=== PATIENT | male | born 1980 | race Caucasian/White ===

== ENCOUNTER 2023-04-06 14:09 | Outpatient (RCR) | payer OTHER, SELFPAY ==
[2023-04-06 15:17] VITALS: BMI 30.5
[2023-04-06 15:18] VITALS: BMI 30.5
== END 2023-06-28 09:51 | disposition home or self-care (01) ==
LOC: ANHDMC 14:09
PROVIDERS: PCP Family Medicine; Visit Provider Nurse Practitioner Gerontology
DX: E11.9 Type 2 diabetes mellitus without complications (principal); Z71.3 Dietary counseling and surveillance
CPT/HCPCS: 97802

== ENCOUNTER 2023-08-02 06:58 | Outpatient (CLI) | payer OTHER, SELFPAY ==
[2023-08-02 07:52] LABS: Alanine Aminotransferase 18 U/L (6-50); Albumin Level 4.1 g/dL (3.5-5.1); Alkaline Phosphatase 59 U/L (38-126); Anion Gap 8 mmol/L (8-16); Aspartate Amino Transferase 19 U/L (17-59); Bilirubin,Total 0.6 mg/dL (0.2-1.3); Blood Urea Nitrogen 17 mg/dL (9-20); Calcium 9.1 mg/dL (8.4-10.2); Carbon Dioxide 27 mmol/L (22-30); Chloride 105 mmol/L (98-107); Cholesterol 158 mg/dL (0-200); Estimated Glomerular Filt Rate > 60; Glucose 116 mg/dL (65-110); HDL Direct 44 mg/dL; Potassium 3.9 mmol/L (3.4-5.0); Sodium 140 mmol/L (137-145); Triglycerides 120 mg/dL (<150)
[2023-08-02 07:53] LABS: Hemoglobin A1C 5.5 % (<5.7)
[2023-08-02 08:03] LABS: LDL Cholesterol Direct 79 mg/dL
== END 2023-08-02 06:59 | disposition home or self-care (01) ==
LOC: ANHLAB 06:59
PROVIDERS: PCP Family Medicine; Visit Provider Physician Assistant
DX: E11.9 Type 2 diabetes mellitus without complications (principal)
CPT/HCPCS: 36415; 80053; 80061; 83036

== ENCOUNTER 2024-01-30 08:32 | Outpatient (CLI) | payer OTHER, SELFPAY ==
--- NOTE | ~2024-01-30 | XR_ITS ---
XR abdomen/kub 1V 01/30/2024 08:45 INDICATION: Flank pain TECHNIQUE: KUB COMPARISON: None FINDINGS: Bowel gas pattern is normal. There is no evidence of free air, mass, organomegaly, ascites or obstruction. No abnormal calculi are seen. The bones appear intact. IMPRESSION: 1: No acute abdominal abnormality identified. Reviewed, dictated and finalized at location B.
== END 2024-01-30 08:33 | disposition home or self-care (01) ==
LOC: ANHIMG 08:35
PROVIDERS: PCP Family Medicine; Visit Provider Physician Assistant
DX: R10.9 Unspecified abdominal pain (principal)
CPT/HCPCS: 74018

== ENCOUNTER 2024-02-20 06:58 | Outpatient (CLI) | payer OTHER, SELFPAY ==
[2024-02-20 07:23] LABS: Basophils Percent Auto 0.7 % (0.2-1.2); Eosinophils Absolute Auto 0.1 K/mm3 (0-0.3); Eosinophils Percent Auto 1.8 % (0-4.4); Hematocrit 47.3 % (42.0-52.0); Hemoglobin 15.9 g/dL (14.0-18.0); Immature Granulocyte Absolute 0.03 K/mm3 (0.00-0.031); Immature Granulocyte Percent A 0.6 % (0-0.5); Lymphocytes Absolute Auto 1.39 K/mm3 (0.9-3.2); Lymphocytes Percent Auto 25.6 % (18.3-44.2); Mean Corpuscular HGB Conc 33.6 g/dl (32-36); Mean Corpuscular Hemoglobin 29.7 pg (26-34); Mean Corpuscular Volume 88.4 fl (80-100); Mean Platelet Volume 11.4 fl (7.4-10.4); Monocytes Absolute Auto 0.7 K/mm3 (0.1-0.6); Neutrophils Absolute Auto 3.2 K/mm3 (1.3-6.7); Neutrophils Percent Auto 59.3 % (45.5-73.1); Platelet Count Result 190 k/mm3 (150-375); Red Blood Count 5.35 M/mm3 (4.6-6.20); Red Cell Distribution Width 11.9 % (11.5-14.5); White Blood Count 5.4 K/mm3 (4.5-10.0)
[2024-02-20 07:28] LABS: Appearance Urine Cloudy (Clear); Bacteria Urine None Seen /hpf; Bilirubin Urine Negative (Negative); Blood Urine Negative (Negative); Color Urine Yellow (Yellow); Glucose Urine UA Negative (Negative); Ketones Urine Negative (Negative); Leukocyte Esterase Ur Negative LEU/UL (Negative); Nitrate Urine Negative (Negative); Non Pathogenic Casts 0-2; Protein Urine Negative (Negative); RBC Urine 0-2 /hpf (0-2); Specific Grav Ur 1.024 (1.001-1.035); Squamous Epithelial Cell Urine None Seen /hpf (Few); Urobilinogen Urine 0.2 mg/dL (<2.0); WBC Urine 0-5 /hpf (0-3); pH Urine 5.5 (5.0-9.0)
[2024-02-20 07:33] LABS: Alanine Aminotransferase 20 U/L (6-50); Albumin Level 4.5 g/dL (3.5-5.1); Alkaline Phosphatase 53 U/L (38-126); Anion Gap 7 mmol/L (4-12); Aspartate Amino Transferase 20 U/L (17-59); Bilirubin,Total 0.9 mg/dL (0.2-1.3); Blood Urea Nitrogen 19 mg/dL (9-20); Calcium 10.1 mg/dL (8.4-10.2); Carbon Dioxide 28 mmol/L (22-30); Chloride 107 mmol/L (98-107); Cholesterol 197 mg/dL (0-200); Estimated Glomerular Filt Rate > 60; Glucose 128 mg/dL (65-110); HDL Direct 47 mg/dL; Potassium 4.2 mmol/L (3.4-5.0); Sodium 142 mmol/L (137-145); Triglycerides 218 mg/dL (<150)
[2024-02-20 08:03] LABS: Prostate Specific Antigen 0.6 ng/mL (< OR = 4.0)
[2024-02-20 08:07] LABS: Add Urine Microscopic? YES
[2024-02-20 08:23] LABS: LDL Cholesterol Direct 101 mg/dL
[2024-02-20 17:41] LABS: Hemoglobin A1C 5.6 % (<5.7)
== END 2024-02-20 06:59 | disposition home or self-care (01) ==
LOC: ANHLAB 06:59
PROVIDERS: PCP Family Medicine; Visit Provider Physician Assistant
DX: N40.0 Benign prostatic hyperplasia without lower urinary tract symptoms (principal); E11.9 Type 2 diabetes mellitus without complications; Z13.220 Encounter for screening for lipoid disorders
CPT/HCPCS: 36415; 80053; 80061; 81001; 83036; 84153; 85025

== ENCOUNTER 2024-06-17 11:00 | Emergency (ER) | payer OTHER, SELFPAY ==
[2024-06-17 11:08] VITALS: BP 121/73; PULSE 60; RESP 15; TEMP 36.8; O2SAT 97
--- NOTE | 2024-06-17 13:46 | ED.GENADULT ---
HPI - General Adult General Chief complaint: Unspecified Stated complaint: blood exposure/ workman comp Time Seen by Provider: 06/17/24 13:11 Source: patient Mode of arrival: ambulatory Limitations: no limitations History of Present Illness HPI narrative: Patient is a 43-year-old male who presents the ED with concern for blood exposure. Patient works as a clothes presser and reports he was exposed to a patient's blood yesterday while cleaning up a scene. He states he believes he was contaminated by the patient's blood on his hands. He did not have any open wounds or cuts on his hands. He washed his hands immediately afterwards, but was referred back to the ED for workman's comp /laboratory evaluation. Patient denies any known medical problems. He does not know anything about the involved patient's medical history. Related Data Allergies Allergy/AdvReac Type Severity Reaction Status Date / Time No Known Allergies Allergy Unknown Verified 06/17/24 11:12 Review of Systems Review of Systems: All systems reviewed & are unremarkable except as noted in HPI. All systems reviewed & are unremarkable except as noted in HPI and below PMFSH Past Medical History Medical History Herpes gingivostomatitis Herpetiform aphthous stomatitis Hx of herpes labialis Family History Family History Mother Hypertension Family history of rheumatoid arthritis Family history of heart disease in male family member before age 55 Father Family history of type 2 diabetes mellitus Social History Social History Social History: Smoking status: Never smoker Second hand tobacco smoke exposure: No Alcohol intake: current Alcohol use details: Occasionally Substance use: never Substance use type: does not use Do You Feel Safe in your Home?: Yes Lack of Transportation: No Lack of Food: Never True Current Housing: I Have Housing Concerned About Future Housing: No Difficulty Paying Gas/Electric Bills: No Difficulty Paying for Meds: No Currently Unemployed: No Education: Don't Know Difficulty w/ Childcare or Family Care: No Living arrangements: with family Occupation/Education: occupation Gender identity (if verbalized by the patient): Male Sexual Orientation (if Verbalized by the Patient): Straight or Heterosexual Spiritual care concerns: No Exam Narrative: GENERAL: Well appearing, well-nourished, non-toxic, in no acute distress. HEAD: Normocephalic, atraumatic. RESPIRATORY: Airway patent, respirations nonlabored. Clear to auscultation bilaterally, no rales, rhonchi, wheezing. CARDIOVASCULAR: Regular rate and rhythm MUSCULOSKELETAL: Moves all extremities. No gross deformities. SKIN: Warm, dry, normal color. NEURO: A&O X3. Speech clear. PSYCHIATRIC: Appropriate mood and affect. Normal interaction. Course Vital Signs Vital signs: Vital Signs Temperature 98.2 F 06/17/24 11:08 Pulse Rate 60 06/17/24 11:08 Respiratory Rate 15 06/17/24 11:08 Blood Pressure 121/73 06/17/24 11:08 Pulse Oximetry 97 06/17/24 11:08 Oxygen Delivery Room Air 06/17/24 11:08 Temperature 98.2 F 06/17/24 11:08 Pulse Rate 60 06/17/24 11:08 Respiratory Rate 15 06/17/24 11:08 Blood Pressure 121/73 06/17/24 11:08 Pulse Oximetry 97 06/17/24 11:08 Oxygen Delivery Room Air 06/17/24 11:08 Medical Decision Making MDM Narrative Medical decision making narrative: Patient's testing here is negative for blood borne pathogens. Advised to follow-up with PCP for repeat evaluation future. Discussed extremely low likelihood of transmission of blood borne pathogen given patient exposure. Medical Records Medical records reviewed: Yes I reviewed the external patient's medical records.
[2024-06-17 14:42] LABS: HIV 1/2 Ab P24 Ag Result Negative (Negative)
[2024-06-17 15:47] LABS: Hepatitis B Surface Antigen Negative (Negative)
[2024-06-17 15:52] LABS: HAV RESULT Negative (Negative); Hepatitis B Core IgM Result Negative (Negative)
[2024-06-17 16:04] LABS: Hepatitis C Virus Antibody Negative (Negative)
== END 2024-06-17 14:44 | disposition home or self-care (01) ==
PROVIDERS: Emergency Provider Physician Assistant; PCP Family Medicine
DX: Z77.21 Contact with and (suspected) exposure to potentially hazardous body fluids (principal)
CPT/HCPCS: 36415; 80074; 86703; 99283; G0432

== ENCOUNTER 2025-01-01 06:52 | Outpatient (CLI) | payer OTHER, SELFPAY ==
--- OUTSIDE RECORDS SUMMARY | 2025-01-01 06:55 | XMS_ITS | Encounter Summary ---
Author Organization [facility] Address [facility] [place] [address] Care Team Providers Care Microbiological Analyst Name Role Phone Shayan Crum MD Primary Care Provider Unavailable Abby Villafana Primary Care Provider [phone] Encounter Details Date Type Department Care Team (Late st Contact Info) Description 09/02/2017 [place] [address] Shayan Crum MD Social History Tobacco Use Types Packs/Day Years Used Date Smoking Tobacco: Never Assessed Sex and Gender Information Value Date Recorded Sex Assigned at Not on file Legal Sex Male 4:54 PM CDT Gender Identity Not on file Sexual Orientation Not on file documented as of this encounter Plan of Treatment Not on file documented as of this encounter Visit Diagnoses Not on filedocumented in this encounter Care Teams Microbiological Analyst Relationship Specialty Start Date End Date Shayan Crum MD PCP - General 03/28/15 Abby Villafana PA [address] [place] [address] PCP - General PHYSICIAN PICCOLOIST 03/11/24 documented as of this encounter
--- OUTSIDE RECORDS SUMMARY | 2025-01-01 06:55 | XMS_ITS | Clinical Summary ---
Author Organization [facility] Address [address] [place] [address] Care Team Providers Care Cell Attendant Name Role Phone Abby Villafana Primary Care Provider Allergies No known active allergies Medications omega-3 fatty acid (FISH OIL) 500 MG capsule Take 1 capsule (500 mg total) by mouth daily. Active Active Problems Problem Noted Date Diagnosed Date Diffuse abdominal pain 03/11/2024 Change in bowel habit 03/11/2024 Constipation, unspecified constipation type 02/27 Incomplete defecation 03/11/2024 Family history of cancer 03/11/2024 Resolved Problems Problem Noted Date Diagnosed Date Resolved Date Screening for colon cancer 03/11/2024 0 03/18/2024 Screening for colon cancer 03/11/2024 0 04/29/2024 Screening for colon cancer 03/11/2024 0 05/06/2024 Screening for colon cancer 03/11/2024 0 05/13/2024 Immunizations Name Administration Dates Next Due MODERNA COVID-19 (12+) MRNA, LNP-S, PF, 100 MCG/ 0.5 ML DOSE 12/25/2020 Family History Medical History Relation Comments Diabetes Father COPD Mother Relation Status Comments Father Alive Mother Social History Tobacco Use Types Packs/Day Years Used Date Smoking Tobacco: Never Passive Smoke Exposure: Never Smokeless Tobacco: Never Tobacco Cessation:Counseling Given: No Alcohol Use Standard Drinks/Week Comments Not Currently 0 (1 standard drink = 0.6 oz pur e alcohol) social PHQ-2 Answer Date Recorded Patient Health Questionnaire-2 Score 0 03/11/2024 Sex and Gender Information Value Date Recorded Sex Assigned at Not on file Legal Sex Male 4:54 PM CDT Gender Identity Not on file Sexual Orientation Not on file Last Filed Vital Signs Vital Sign Reading Time Taken Comments Blood Pressure 113/63 05/10/2024 10:35 AM CDT Pulse 62 05/10/2024 10:17 AM CDT Temperature 36.5 C (97.7 F) 05/10/2024 10:17 AM CDT Respiratory Rate 16 05/10/2024 10:35 AM CDT Oxygen Saturation 98% 05/10/2024 10:35 AM CDT Inhaled Oxygen Concentration - - Weight 87.1 kg (192 lb) 04/29/2024 1:52 PM CDT Height 172.7 cm (5' 8 ) 03/11/2024 1:08 PM CDT Body Mass Index 29.19 03/11/2024 1:08 PM CDT Plan of Treatment Health Maintenance Due Date Last Done Comments Annual Physical 1983 Hepatitis C 1998 DTaP, Tdap and Td Vaccines ( 1 - Tdap) 1999 Hepatitis B Vaccines (1 of 3 - 19+ 3-dose series) 1999 COVID-19 Vaccine (2 - 2023-2 5 season) 2024 12/25/2020 Influenza Adult (#1) 2024 PHQ-2 (Physician [place]) 10/30/2024 03/11/2024 PHQ-2 (Physician [place]) 03/11/2025 03/11/2024 HPV Vaccines Aged Out No longer eligi ble based on patient's age to complete this topic Meningococcal B Vaccine Aged Out No l onger eligible based on patient's age to complete this topic Meningococcal Vaccine Aged Out No mario joseph eligible based on patient's age to complete this topic Pneumococcal Vaccine: Pediat rics (0 to 5 Years) and At-Risk Patients (6 to 64 Years) Aged Out No longer eligi ble based on patient's age to complete this topic RSV Immunizations Under 20 Months Aged Out No longer eligible based on patient's age to complete this topic Insurance [employer] Care Teams Cell Attendant Relationship Specialty Start Date End Date Abby Villafana PA [address] [place] [address] PCP - General PHYSICIAN SOFTWARE TESTING SPECIALIST 03/11/24
[2025-01-01 08:09] LABS: Hematocrit 44.3 % (42.0-52.0); Hemoglobin 15.4 g/dL (14.0-18.0); Mean Corpuscular HGB Conc 34.8 g/dl (32-36); Mean Corpuscular Volume 86.4 fl (80-100); Mean Platelet Volume 12.1 fl (7.4-10.4); Platelet Count Result 169 k/mm3 (150-375); Red Blood Count 5.13 M/mm3 (4.6-6.20); Red Cell Distribution Width 11.9 % (11.5-14.5); White Blood Count 5.8 K/mm3 (4.5-10.0)
[2025-01-01 08:32] LABS: Alanine Aminotransferase 44 U/L (6-50); Albumin Level 4.3 g/dL (3.5-5.1); Alkaline Phosphatase 60 U/L (38-126); Anion Gap 9 mmol/L (4-12); Aspartate Amino Transferase 27 U/L (17-59); Bilirubin,Total 0.6 mg/dL (0.2-1.3); Blood Urea Nitrogen 18 mg/dL (9-20); Calcium 9.4 mg/dL (8.4-10.2); Carbon Dioxide 26 mmol/L (22-30); Chloride 105 mmol/L (98-107); Cholesterol 183 mg/dL (0-200); Estimated Glomerular Filt Rate > 60; Glucose 133 mg/dL (65-110); HDL Direct 43 mg/dL; Potassium 4.2 mmol/L (3.4-5.0); Sodium 140 mmol/L (137-145); Triglycerides 214 mg/dL (<150)
[2025-01-01 08:44] LABS: LDL Cholesterol Direct 86 mg/dL
[2025-01-01 08:55] LABS: Hemoglobin A1C 6.1 % (<5.7)
[2025-01-01 09:05] LABS: Add Urine Microscopic? NO; Appearance Urine Clear (Clear); Bilirubin Urine Negative (Negative); Blood Urine Negative (Negative); Color Urine Yellow (Yellow); Glucose Urine UA Negative (Negative); Ketones Urine Negative (Negative); Leukocyte Esterase Ur Negative LEU/UL (Negative); Nitrate Urine Negative (Negative); Protein Urine Negative (Negative); Specific Grav Ur 1.023 (1.001-1.035); Urobilinogen Urine 0.2 mg/dL (<2.0)
[2025-01-01 09:37] LABS: MALB Creatinine Ratio < 4.7 mg/g (0-30); Microalbumin Urine Random < 6.0 mg/L (0-16.7)
== END 2025-01-01 06:53 | disposition home or self-care (01) ==
LOC: ANHLAB 06:53
PROVIDERS: PCP Family Medicine; Visit Provider Family Medicine
DX: E78.5 Hyperlipidemia, unspecified (principal); Z00.00 Encounter for general adult medical examination without abnormal findings; E11.9 Type 2 diabetes mellitus without complications
CPT/HCPCS: 36415; 80053; 80061; 81003; 82043; 83036; 84443; 85027

== ENCOUNTER 2025-07-18 07:45 | Outpatient (CLI) | payer BC, SELFPAY ==
--- OUTSIDE RECORDS SUMMARY | 2025-07-18 07:50 | XMS_ITS | Clinical Summary ---
Author Organization [facility] Address [address] [place] [address] Care Team Providers Care Blemish Remover Name Role Phone Abby Villafana Primary Care Provider [phone] Allergies No known active allergies Medications omega-3 [...] for colon cancer 03/11/2024 0 05/13/2024 Immunizations Immunization Administration Dates Next Due MODERNA COVID-19 (12+) [...] 1:52 PM CDT Height 172.7 cm (5' 8) 03/11/2024 1:08 PM CDT Body Mass Index 29.19 03/11/2024 1:08 PM CDT Plan of Treatment Health Maintenance Due Date Last Done Comments Annual Physical 1983 Hepatitis C 1998 DTaP, Tdap and Td Vaccines ( 1 - Tdap) 1999 Hepatitis B Vaccines (1 of 3 - 19+ 3-dose series) 1999 HPV Vaccines (1 - 3-dose SCD M series) 2007 PHQ-2 (Physician [place]) 10/30/2024 03/11/2024 COVID-19 Vaccine (2 - 2024-2 6 season) 2025 12/25/2020 Meningococcal B Vaccine Aged Out No l onger eligible based on patient's age to complete this topic Meningococcal Vaccine Aged Out No mario joseph eligible based on patient's age to complete this topic Pneumococcal Vaccine: Pediat rics (0 to 5 Years) and At-Risk Patients (6 to 49 Years) Aged Out No longer eligi ble based on patient's age to complete this topic RSV Immunizations Under 20 Months Aged Out No longer eligible based on patient's age to complete this topic Insurance [employer] Care Teams Blemish Remover Relationship Specialty Start Date End Date Abby Villafana PA [address] [place] [address] PCP - General PHYSICIAN CONCRETE PIPE PLANT SUPERVISOR 03/11/24
--- OUTSIDE RECORDS SUMMARY | 2025-07-18 07:50 | XMS_ITS | Encounter Summary ---
Author Organization [facility] Address [facility] [place] [address] Care Team Providers Care Damage Prevention Coordinator Name Role Phone Shayan Crum MD Primary Care Provider Unavailable Abby Villafana Primary Care Provider [phone] Encounter Details Date Type Department Care Team (Late st Contact Info) Description 09/02/2017 Abstract [place] [address] Shayan Crum MD Social History Tobacco Use [...] on filedocumented in this encounter Care Teams Damage Prevention Coordinator Relationship Specialty Start Date End Date Shayan Crum MD PCP - General 03/28/15 Abby Villafana PA [address] [place] [address] PCP - General PHYSICIAN PERSONNEL CONSULTANT 03/11/24 documented as of this encounter
[2025-07-18 09:04] LABS: Hemoglobin A1C 6.0 % (<5.7)
[2025-07-18 09:07] LABS: Alanine Aminotransferase 23 U/L (6-50); Albumin Level 4.3 g/dL (3.5-5.1); Alkaline Phosphatase 55 U/L (38-126); Anion Gap 7 mmol/L (4-12); Aspartate Amino Transferase 24 U/L (17-59); Bilirubin,Total 1.1 mg/dL (0.2-1.3); Blood Urea Nitrogen 17 mg/dL (9-20); Calcium 9.0 mg/dL (8.4-10.2); Carbon Dioxide 26 mmol/L (22-30); Chloride 105 mmol/L (98-107); Estimated Glomerular Filt Rate > 60; Glucose 130 mg/dL (65-110); Potassium 4.0 mmol/L (3.4-5.0); Sodium 138 mmol/L (137-145); Total Protein 7.6 g/dL (6.3-8.2)
== END 2025-07-18 07:46 | disposition home or self-care (01) ==
LOC: ANHLAB 07:48
PROVIDERS: PCP Family Medicine; Visit Provider Family Medicine
DX: E11.9 Type 2 diabetes mellitus without complications (principal)
CPT/HCPCS: 36415; 80053; 83036